=== PATIENT | male | born 1990 | race Caucasian/White ===

== ENCOUNTER → 2018-02-13 | Outpatient (CLI) | payer OTHER ==
[~2018-02-13] MED LIST: DIPH-1 PO; MONT10TA4 PO; ONDA4TAB PO; PRED-314 PO
--- NOTE | 2018-02-14 00:18 | RADIOLOGY IMAGING REPORT ---
FACILITY: [facility] PATIENT NAME: Doni Jones : 1990 MR: [id number] V: [id number] EXAM DATE: [id number] ORDERING PHYSICIAN: MARIA DEL CARMEN WILSON TECHNOLOGIST: Location: [facility] [place] Patient: Doni Jones : 1990 Visit/Account:[id number] Date of Sevice: 02/13/2018 Ultrasound of the soft tissues of the neck: Indication: Recent onset of a palpable abnormality on the right side of the neck. Technique: Longitudinal and transverse images were obtained on both sides of the neck, with limited D oppler. Comparison: None. Findings: In the right submandibular space, there is a lobular cystic structure, measuring approximately 2.8 x 1.8 x 1.4 cm. Doppler images demonstrate no evidence of internal flow or peripheral hyperemia. 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 A branchial cleft cyst should also be considered at this location. Contrast-enhanced CT of the neck is recommended for further evaluation. There appears to be a partially calcified lymph node in right zone III, measuring 8 x 3 x 2 mm. There is also an elongated lymph node in right zone III, measuring 27 x 8 x 3 mm, with unremarkable morpho logy. The right lobe of thyroid is unremarkable, as visualized. On the left side, no lymph nodes or cystic lesions are identified. The left lobe of thyroid is unrema rkable, as visualized. Impression: In the right submandibular space, there is a lobular cystic structure, likely representin g a ranula. A branchial cleft cyst should also be considered. Contrast-enhanced CT is recommended for further evaluation. Report Dictated By: Bry López MD at 02/13/2018 10:58 PM Report E-Signed By: Bry López MD at 02/14/2018 12:14 AM WSN:[id number]
== END ==
LOC: US 01:32
PROVIDERS: ATTEND Physician Assistant
DX: M27.2 Inflammatory conditions of jaws (principal)
CPT/HCPCS: 76536

== ENCOUNTER → 2018-02-23 | Outpatient (CLI) | payer SELFPAY ==
[~2018-02-23] MED LIST changes: +IOPAMIDOL 76% 75 ML INFUS BTL 75 ML ONE
--- NOTE | 2018-02-23 15:38 | RADIOLOGY IMAGING REPORT ---
FACILITY: [facility] [place] PATIENT NAME: Doni Jones : 1990 MR: [id number] V: [id number] EXAM DATE: ORDERING PHYSICIAN: HOSSEIN JACOBO TECHNOLOGIST: Location: [facility] [place] Patient: Doni Jones : 1990 Visit/Account:[id number] Date of Sevice: 02/23/2018 EXAMINATION: CT neck with IV contrast HISTORY: Jaw swelling, inflammatory condition of jaw. COMPARISON: None. TECHNIQUE: Spiral scan was obtained from the hard palate through the upper chest during injection o f nonionic iodinated intravenous contrast. Sagittal and coronal reformatted images are also submitte d. CONTRAST: 75 mL of IV Isovue-[id number]. One of the following dose optimization techniques was utilized in the performance of this exam: Autom ated exposure control; adjustment of the mA and/or kV according to the patient's size; or use of an i terative reconstruction technique. Specific details can be referenced in the facility's radiology C T exam operational policy. FINDINGS: Masses/lesions: A marker is placed on the right neck at site of abnormality. There is an oblong hyp odense lesion deep to the right mandible. The lesion extends from anteriorly with a thin extension i nto the sublingual space (coronal image 12), and posteriorly in the right submandibular space. The p osterior aspect of the lesion is superficial to the right submandibular gland. There are no internal septations. The lesion measures over 4 cm in length by 1 cm in width. Airway: Normal. Vessels: Negative. Musculoskeletal/body wall: Mild anterior bony spurring at C5-6. 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 Lymph nodes: Negative. Visualized orbits/brain/paranasal sinuses: Negative. Upper chest: Negative. IMPRESSION: 1. Banner unilocular hypodense mass in the right submandibular space measuring over 4 x 1 cm. This is most suspicious for a diving ranula with thin connection to the sublingual space. Lymphangioma is in the differential but is considered less likely. 2. 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 Report Dictated By: Kandi Escamilla MD at 02/23/2018 3:26 PM Report E-Signed By: Kandi Escamilla MD at 02/23/2018 3:34 PM WSN:[id number]
== END ==
LOC: CT 02:19
PROVIDERS: ATTEND Family Medicine
DX: M27.2 Inflammatory conditions of jaws (principal)
CPT/HCPCS: 70491; Q9967